=== PATIENT | male | born 1950 | race Caucasian/White ===

== ENCOUNTER 2020-10-18 08:02 | Emergency (ER) | payer MEDICARE ==
[~2020-10-18] VITALS: Ht 170.2 cm; Wt 70.0 kg
[~2020-10-18 08:02] MED LIST: CIPROFLOXACN500 MG PO; DILAUDID 2MG2 MG/TAB PO; DILAUDID2 MG PO; LISINOPRIL10 MG PO; ONDANSETRON4 MG PO; PERCOCET 5/325M1 TAB PO; UNK ANTIBIOTIC; VESICARE10 MG PO
[2020-10-18 09:01] LABS: IMMATURE GRANULOCYTES 0.3 % (0.0-5.0); MEAN CELL VOLUME 83.8 fL CALC (80.0-100.0); MEAN CORPUSCULAR HGB 27.3 pG CALC (26.0-32.0); MEAN CORPUSCULAR HGB CONC 32.6 g/dL CAL (32.0-36.0); NEUT# 2.19 thou/uL (1.82-7.42); RED BLOOD COUNT 5.93 mill/uL (4.70-6.10); RED CELL DISTRI WIDTH 12.5 % (11.5-15.5)
[2020-10-18 09:02] LABS: HEMATOCRIT 49.7 % (39.0-50.0); HEMOGLOBIN 16.2 g/dl (14.0-18.0)
[2020-10-18 09:12] LABS: ALBUMIN 4.3 g/dL (3.2-5.0); ALKALINE PHOSPHATASE 99 u/l (38-126); ANION GAP 13 (6-22 (CALC)); BILIRUBIN, TOTAL 0.7 mg/dL (0.0-1.4); BUN 13 mg/dL (8-23); BUN/CREATININE RATIO 18 (12-20 (CALC)); CARBON DIOXIDE 32 mmol/l (22-30); CHLORIDE 96 mmol/l (95-108); CREATININE 0.7 mg/dL (0.7-1.3); GFR > 60 ML/MIN (>=60 (CALC)); GFR FOR AFR.AMER. > 60 ML/MIN (>=60 (CALC)); POTASSIUM 3.8 mmol/l (3.5-5.1); SODIUM 137 mmol/l (137-146); TOTAL PROTEIN 7.6 g/dL (6.3-8.2)
[2020-10-18 09:15] LABS: SGOT/AST 32 u/l (19-48)
[2020-10-18 09:23] LABS: MYOGLOBIN 29 ng/mL (0 - 121)
[2020-10-18 10:03] LABS: URINE BILIRUBIN - DIPSTICK NEGATIVE (NEGATIVE); URINE BLOOD DIPSTICK TRACE-INTACT (NEGATIVE); URINE COLOR YELLOW; URINE GLUCOSE - DIPSTICK NEGATIVE (NEGATIVE); URINE KETONE 40 mg/dL (NEGATIVE); URINE LEUK ESTERASE NEGATIVE (NEGATIVE); URINE PROTEIN - DIPSTICK 30 mg/dL (NEG-TRACE); URINE SPECIFIC GRAVITY >=1.030
[2020-10-18 10:08] LABS: URINE NITRITE - DIPSTICK NEGATIVE (Negative)
[2020-10-18 10:09] LABS: URINE RBC 0-2 RBC/hpf (0-5)
[2020-10-18 10:10] LABS: URINE EPITHELIAL CELLS FEW EPI/hpf (0-FEW); URINE MUCUS MODERATE hpf (NONE-FEW)
[2020-10-18 10:53] VITALS: BP 138/76
== END 2020-10-18 10:52 | disposition home or self-care (01) ==
LOC: ED 08:02
PROVIDERS: Emergency Medicine
DX: U07.1 COVID-19 (principal); K21.9 Gastro-esophageal reflux disease without esophagitis